=== PATIENT | male | born 1945 | race Caucasian/White ===

== ENCOUNTER → 2020-04-29 11:55 | Outpatient (CLI) | payer MEDICARE, OTHER, SELFPAY | PROVIDERS: Family Provider Internal Medicine; PCP Internal Medicine; Referring Provider Family Medicine; Visit Provider Family Medicine | DX: S81.002A Unspecified open wound, left knee, initial encounter (principal) | CPT/HCPCS: 11042; 99203; 99213 ==

== ENCOUNTER → 2020-05-12 11:22 | Outpatient (CLI) | payer MEDICARE, OTHER, SELFPAY | PROVIDERS: Family Provider Internal Medicine; PCP Internal Medicine; Referring Provider Internal Medicine; Visit Provider Family Medicine | DX: S81.002A Unspecified open wound, left knee, initial encounter (principal); N40.1 Benign prostatic hyperplasia with lower urinary tract symptoms; N13.8 Other obstructive and reflux uropathy; K40.90 Unilateral inguinal hernia, without obstruction or gangrene, not specified as recurrent; Z87.442 Personal history of urinary calculi | CPT/HCPCS: 11042; 81002; 99215 ==

== ENCOUNTER → 2022-09-03 07:45 | Outpatient (CLI) | payer MEDICARE, SELFPAY ==
--- NOTE | 2022-09-03 19:12 | DI.NM.S_ITS ---
DATE OF SERVICE: 09/03/2022 PROCEDURE: Exercise treadmill stress test ORDERING PROVIDER: Wes Schultz MD. INDICATIONS: The patient is a 77-year-old male with a history of exertional hypotension. FINDINGS: 1. The patient was able to exercise for 10 minutes, 1 second on a standard Du protocol, suggesting exceptional exercise capacity with an ALVARADO of -75%, achieving 10.7 METS. 2. He had a normal heart rate and blood pressure response to exercise, achieving a maximum heart rate of 151 BPM (107% of his predicted maximum). His resting blood pressure of 120/60 alfredo to a peak of 168/70. 3. He had no chest discomfort or other anginal symptoms or lightheadedness. 4. His resting ECG shows sinus rhythm with normal ST segments. With stress, there are no significant ST-segment shifts. He had rare isolated PVCs, but no complex ectopy. IMPRESSION: 1. Normal exercise treadmill stress test for ischemia. 2. Exceptional exercise capacity without angina. He had a normal heart rate and blood pressure response to exercise. Say Thomas - NATALIE/rhett/aidan doc#: [id number]/job#: [id number] dd: 09/03/2022 12:55:00 dt: 09/03/2022 18:43:00 DICTATING MD/COPIES TO: Remi Lee MD; Wes Schultz MD COPIES MNE: AMIE;
== END ==
PROVIDERS: Family Provider Internal Medicine; PCP Family Medicine; Referring Provider Student in an Organized Health Care Education/Training Program; Visit Provider Student in an Organized Health Care Education/Training Program
DX: I95.89 Other hypotension
CPT/HCPCS: 93017